=== PATIENT | male | born 1960 | race Caucasian/White ===

== ENCOUNTER 2018-10-22 17:47 | Emergency (ER) | payer SELFPAY ==
[~2018-10-22] VITALS: Ht 177.8 cm; Wt 100.0 kg
[2018-10-22 19:57] VITALS: BP 138/89
[2018-10-22] MEDS ORDERED: IBUPROFEN600 MG PO (19:57)
== END 2018-10-22 20:09 | disposition home or self-care (01) | DRG 605 ==
LOC: ED 17:47
DX: S40.012A Contusion of left shoulder, initial encounter (principal); W11.XXXA Fall on and from ladder, initial encounter; Y93.H9 Activity, other involving exterior property and land maintenance, building and construction; Y92.007 Garden or yard of unspecified non-institutional (private) residence as the place of occurrence of the external cause

== ENCOUNTER 2019-05-09 11:48 | Observation (INO) | payer SELFPAY ==
[~2019-05-09] VITALS: Ht 177.8 cm; Wt 110.0 kg
[~2019-05-09 11:48] MED LIST: IBUPROFEN600 MG PO
[2019-05-09 12:54] LABS: HEMOGLOBIN 18.4 g/dl (14.0-18.0); IMMATURE GRANULOCYTES 1.7 % (0.0-5.0); MEAN CELL VOLUME 89.4 fL CALC (80.0-100.0); MEAN CORPUSCULAR HGB 30.5 pG CALC (26.0-32.0); MEAN CORPUSCULAR HGB CONC 34.1 g/L CALC (32.0-36.0); NEUT# 7.78 thou/uL (1.82-7.42); RED BLOOD COUNT 6.04 mill/uL (4.70-6.10); RED CELL DISTRI WIDTH 13.2 % (11.5-15.5)
[2019-05-09 13:08] LABS: ANION GAP 14 (6-22 (CALC)); BUN 13 mg/dL (9-20); BUN/CREATININE RATIO 16 (12-20 (CALC)); CARBON DIOXIDE 25 mmol/l (22-30); CHLORIDE 101 mmol/l (95-108); CREATININE 0.8 mg/dL (0.7-1.3); GFR > 60 ML/MIN (>=60 (CALC)); GFR FOR AFR.AMER. > 60 ML/MIN (>=60 (CALC)); POTASSIUM 4.5 mmol/l (3.5-5.1); SODIUM 135 mmol/l (137-146)
[2019-05-09 15:00] VITALS: BP 144/94
[2019-05-09 15:05] VITALS: BP 144/94
[2019-05-09 19:20] VITALS: BP 131/86
[2019-05-10 04:30] VITALS: BP 121/78
[2019-05-10 05:00] LABS: HEMATOCRIT 49.4 % (39.0-50.0); HEMOGLOBIN 16.6 g/dl (14.0-18.0); IMMATURE GRANULOCYTES 1.4 % (0.0-5.0); MEAN CORPUSCULAR HGB 30.2 pG CALC (26.0-32.0); MEAN CORPUSCULAR HGB CONC 33.6 g/L CALC (32.0-36.0); NEUT# 5.68 thou/uL (1.82-7.42); RED BLOOD COUNT 5.49 mill/uL (4.70-6.10); RED CELL DISTRI WIDTH 13.2 % (11.5-15.5)
[2019-05-10 05:18] LABS: ALBUMIN 3.5 g/dL (3.2-5.0); ALKALINE PHOSPHATASE 82 u/l (38-126); ANION GAP 12 (6-22 (CALC)); BILIRUBIN, TOTAL 0.7 mg/dL (0.0-1.4); BUN 14 mg/dL (9-20); BUN/CREATININE RATIO 19 (12-20 (CALC)); CARBON DIOXIDE 25 mmol/l (22-30); CHLORIDE 103 mmol/l (95-108); CREATININE 0.7 mg/dL (0.7-1.3); GFR > 60 ML/MIN (>=60 (CALC)); GFR FOR AFR.AMER. > 60 ML/MIN (>=60 (CALC)); POTASSIUM 4.3 mmol/l (3.5-5.1); SGOT/AST 36 u/l (17-59); SODIUM 136 mmol/l (137-146); TOTAL PROTEIN 6.9 g/dL (6.3-8.2)
[2019-05-10 08:05] VITALS: BP 135/78
[2019-05-10 10:58] VITALS: BP 140/95
[2019-05-10 14:48] VITALS: BP 148/93
[2019-05-10 16:31] VITALS: BP 152/94
[2019-05-10 19:11] VITALS: BP 157/89
[2019-05-10 22:44] LABS: URINE BILIRUBIN - DIPSTICK NEGATIVE (NEGATIVE); URINE BLOOD DIPSTICK NEGATIVE (NEGATIVE); URINE COLOR YELLOW; URINE GLUCOSE - DIPSTICK 250 mg/dL (NEGATIVE); URINE KETONE NEGATIVE (NEGATIVE); URINE LEUK ESTERASE NEGATIVE (NEGATIVE); URINE NITRITE - DIPSTICK NEGATIVE (Negative); URINE PROTEIN - DIPSTICK NEGATIVE (NEG-TRACE)
[2019-05-11 04:25] VITALS: BP 127/87
[2019-05-11 07:35] VITALS: BP 140/83
[2019-05-11 08:24] VITALS: BP 140/83
[2019-05-11] MEDS ORDERED: PENICILLN VK500 MG PO (12:50)
[2019-05-11] MEDS ORDERED: LISINOPRIL20 M1 PO (12:50)
[2019-05-11] MEDS ORDERED: GLUCOPHAGE500 MG PO (12:50)
== END 2019-05-11 14:15 | disposition home or self-care (01) | DRG 603 ==
LOC: ED 11:48 → ED-I 13:14 → ED 13:23 → MS2 13:24
PROVIDERS: Family Medicine; Nurse Practitioner Family; ADMIT Internal Medicine; ATTEND Internal Medicine
DX: L03.116 Cellulitis of left lower limb (principal); L21.9 Seborrheic dermatitis, unspecified; I10 Essential (primary) hypertension; E11.9 Type 2 diabetes mellitus without complications; H90.5 Unspecified sensorineural hearing loss; E66.9 Obesity, unspecified; B95.0 Streptococcus, group A, as the cause of diseases classified elsewhere; T46.5X6A Underdosing of other antihypertensive drugs, initial encounter; Z91.128 Patient's intentional underdosing of medication regimen for other reason; Z68.34 Body mass index [BMI] 34.0-34.9, adult
CPT/HCPCS: G0378; J1650; J3370

== ENCOUNTER 2020-08-24 00:24 | Observation (INO) | payer SELFPAY ==
[~2020-08-24] VITALS: Ht 177.8 cm; Wt 106.6 kg
[~2020-08-24 00:24] MED LIST changes: +GLUCOPHAGE500 MG PO; +LISINOPRIL20 M1 PO; +PENICILLN VK500 MG PO
[2020-08-24 01:26] LABS: IMMATURE GRANULOCYTES 0.9 % (0.0-5.0); MEAN CELL VOLUME 88.2 fL CALC (80.0-100.0); MEAN CORPUSCULAR HGB 29.3 pG CALC (26.0-32.0); MEAN CORPUSCULAR HGB CONC 33.2 g/dL CAL (32.0-36.0); NEUT# 6.08 thou/uL (1.82-7.42); RED BLOOD COUNT 6.45 mill/uL (4.70-6.10); RED CELL DISTRI WIDTH 12.9 % (11.5-15.5)
[2020-08-24 01:27] LABS: HEMATOCRIT 56.9 % (39.0-50.0); HEMOGLOBIN 18.9 g/dl (14.0-18.0)
[2020-08-24 01:46] LABS: ALBUMIN 4.1 g/dL (3.2-5.0); ALKALINE PHOSPHATASE 104 u/l (38-126); ANION GAP 14 (6-22 (CALC)); BILIRUBIN, TOTAL 0.7 mg/dL (0.0-1.4); BUN 14 mg/dL (9-20); BUN/CREATININE RATIO 22 (12-20 (CALC)); CARBON DIOXIDE 24 mmol/l (22-30); CHLORIDE 99 mmol/l (95-108); CREATININE 0.6 mg/dL (0.7-1.3); GFR > 60 ML/MIN (>=60 (CALC)); GFR FOR AFR.AMER. > 60 ML/MIN (>=60 (CALC)); LIPASE 546 u/l (23-300); POTASSIUM 4.4 mmol/l (3.5-5.1); SGOT/AST 54 u/l (17-59); SODIUM 133 mmol/l (137-146)
[2020-08-24 11:14] VITALS: BP 131/90
[2020-08-24] MEDS ORDERED: COLACE100 MG PO (11:48)
[2020-08-24] MEDS ORDERED: NAPROXEN500 MG PO (11:49)
== END 2020-08-24 10:26 | disposition home or self-care (01) | DRG 552 ==
LOC: ED 00:24 → ED-I 06:50 → ED 08:50 → MS2 08:51
PROVIDERS: Emergency Medicine; ADMIT Internal Medicine; ATTEND Internal Medicine
DX: M54.5 Low back pain (principal); K59.00 Constipation, unspecified; I10 Essential (primary) hypertension; H90.5 Unspecified sensorineural hearing loss; Z20.822 Contact with and (suspected) exposure to COVID-19
CPT/HCPCS: G0378; Q9967

== ENCOUNTER 2022-09-25 09:36 | Emergency (ER) | payer OTHER ==
[2022-09-25] VITALS (7 sets, daily range): BP systolic 156–183; BP diastolic 94–147
[~2022-09-25] VITALS: Ht 177.8 cm; Wt 90.2 kg
[~2022-09-25 09:36] MED LIST changes: +COLACE100 MG PO; +NAPROXEN500 MG PO
[2022-09-25 10:16] LABS: BASO% 0.3 % (0-3); EOS% 1.4 % (0-8); HEMOGLOBIN 15.5 g/dl (14.0-18.0); IMMATURE GRANULOCYTES 0.6 % (0.0-5.0); MEAN CELL VOLUME 86.9 fL CALC (80.0-100.0); MEAN CORPUSCULAR HGB 29.9 pG CALC (26.0-32.0); MEAN CORPUSCULAR HGB CONC 34.4 g/dL CAL (32.0-36.0); MONO% 9.7 % (2-13); NEUT# 11.21 thou/uL (1.82-7.42); RED BLOOD COUNT 5.18 mill/uL (4.70-6.10); RED CELL DISTRI WIDTH 12.4 % (11.5-15.5)
[2022-09-25 10:42] LABS: ALBUMIN 3.7 g/dL (3.2-5.0); ALKALINE PHOSPHATASE 148 u/l (38-126); ANION GAP 12 (6-22 (CALC)); BILIRUBIN, TOTAL 0.7 mg/dL (0.2-1.3); BUN 10 mg/dL (8-23); BUN/CREATININE RATIO 16 (12-20 (CALC)); C-REACTIVE PROTEIN 5.3 mg/dL (0-0.9); CARBON DIOXIDE 27 mmol/l (22-30); CHLORIDE 101 mmol/l (95-108); CREATININE 0.6 mg/dL (0.7-1.3); GFR FOR AFR.AMER. > 60 ML/MIN (>=60 (CALC)); GFR OTHER RACES > 60 ML/MIN (>=60 (CALC)); POTASSIUM 3.9 mmol/l (3.5-5.1); SGOT/AST 29 u/l (19-48); SODIUM 135 mmol/l (137-146); TOTAL PROTEIN 8.1 g/dL (6.3-8.2)
[2022-09-25] MEDS ORDERED: HYDROCO/APAP1 TA9 PO ×2 (11:17→13:55)
[2022-09-25] MEDS ORDERED: CEPHALEXIN500 M1 PO (11:17)
[2022-09-25] MEDS ORDERED: BACTRIM DS1 TAB PO (11:17)
== END 2022-09-25 12:04 | disposition left against medical advice (07) | DRG 603 ==
LOC: ED 09:36
PROVIDERS: Family Medicine
PROC: 0S9C3ZZ Drainage of Right Knee Joint, Percutaneous Approach (ICD-10-PCS; principal; 2022-09-25)
DX: L03.115 Cellulitis of right lower limb (principal)

== ENCOUNTER 2022-09-30 19:56 | Emergency (ER) | payer OTHER ==
[~2022-09-30] VITALS: Ht 177.8 cm; Wt 90.7 kg
[~2022-09-30 19:56] MED LIST changes: +BACTRIM DS1 TAB PO; +CEPHALEXIN500 M1 PO; +HYDROCO/APAP1 TA9 PO
[2022-09-30 22:01] VITALS: BP 165/116
[2022-09-30 22:15] VITALS: BP 158/99
[2022-09-30 22:25] VITALS: BP 158/99
[2022-09-30 22:35] LABS: BASO% 0.3 % (0-3); EOS% 0.8 % (0-8); HEMATOCRIT 46.5 % (39.0-50.0); HEMOGLOBIN 15.7 g/dl (14.0-18.0); IMMATURE GRANULOCYTES 1.4 % (0.0-5.0); LYMPH% 8.2 % (15-41); MEAN CELL VOLUME 87.4 fL CALC (80.0-100.0); MEAN CORPUSCULAR HGB 29.5 pG CALC (26.0-32.0); MEAN CORPUSCULAR HGB CONC 33.8 g/dL CAL (32.0-36.0); MONO% 7.2 % (2-13); NEUT# 12.71 thou/uL (1.82-7.42); NEUT% 82.1 % (42-76); RED BLOOD COUNT 5.32 mill/uL (4.70-6.10); RED CELL DISTRI WIDTH 12.4 % (11.5-15.5)
[2022-09-30 22:54] LABS: ALBUMIN 3.8 g/dL (3.2-5.0); ANION GAP 16 (6-22 (CALC)); BILIRUBIN, TOTAL 0.5 mg/dL (0.2-1.3); BUN 15 mg/dL (8-23); BUN/CREATININE RATIO 17 (12-20 (CALC)); CARBON DIOXIDE 26 mmol/l (22-30); CHLORIDE 95 mmol/l (95-108); CREATININE 0.9 mg/dL (0.7-1.3); GFR FOR AFR.AMER. > 60 ML/MIN (>=60 (CALC)); GFR OTHER RACES > 60 ML/MIN (>=60 (CALC)); POTASSIUM 4.6 mmol/l (3.5-5.1); SGOT/AST 37 u/l (19-48); SODIUM 133 mmol/l (137-146); TOTAL PROTEIN 8.2 g/dL (6.3-8.2)
[2022-09-30 23:41] LABS: ALKALINE PHOSPHATASE 237 u/l (38-126)
[2022-10-01] MEDS ORDERED: BACTRIM DS1 TAB PO (00:02)
[2022-10-01] MEDS ORDERED: LORTAB 1010 MG PO (00:02)
[2022-10-01] MEDS ORDERED: KEFLEX500 MG PO (00:02)
== END 2022-10-01 00:27 | disposition home or self-care (01) | DRG 603 ==
LOC: ED 19:56
PROVIDERS: Emergency Medicine
PROC: 0S9C3ZZ Drainage of Right Knee Joint, Percutaneous Approach (ICD-10-PCS; principal; 2022-09-30)
DX: L03.116 Cellulitis of left lower limb (principal); W19.XXXA Unspecified fall, initial encounter